=== PATIENT | male | born 1985 | race Caucasian/White ===

== ENCOUNTER 2019-06-21 06:10 | Day surgery (SDC) | payer SELFPAY ==
[2019-06-15 15:07] VITALS: BMI 36.1
[2019-06-21] MEDS ORDERED: fentaNYL CITRATE 250 MCG/5 ML VIAL ONE ×2 (07:25→12:52)
[2019-06-21] MEDS ORDERED: LIDOCAINE HCL 2% 100 MG/5 ML DISP.SYRIN ONE (07:25)
[2019-06-21] MEDS ORDERED: ceFAZolin SODIUM 1 GM VIAL ONE (07:25)
[2019-06-21] MEDS ORDERED: MIDAZOLAM HCL 2 MG/2 ML SINGLE DOSE VIAL ONE ×2 (07:25)
[2019-06-21] MEDS ORDERED: PROPOFOL 20 ML ONE ×2 (07:25)
[2019-06-21] MEDS ORDERED: DEXAMETHASONE SOD PHOSPHATE 4 MG/1 ML VIAL ONE (07:25)
[2019-06-21] MEDS ORDERED: ONDANSETRON 4 MG/2 ML VIAL ONE (07:25)
[2019-06-21] MEDS ORDERED: ROCURONIUM BROMIDE 50 MG/5 ML SYRINGE ONE (07:25)
[2019-06-21] MEDS ORDERED: SUCCINYLCHOLINE CHLORIDE 200 MG/10 ML SYRINGE ONE (07:26)
[2019-06-21] MEDS ORDERED: SODIUM BICARBONATE 8.4% 50 MEQ/50 ML VIAL ONE (07:27)
[2019-06-21] MEDS ORDERED: EPINEPHrine/PF 1 MG/1 ML (1:1,000) AMPULE ONE ×2 (07:27→08:03)
[2019-06-21] MEDS ORDERED: LIDOCAINE HCL 2% (20ML MULTI-DOSE VIAL) ONE ×2 (07:27→08:03)
[2019-06-21] MEDS ORDERED: HYDROmorphone HCL/PF 1 MG/ML AMP ONE ×2 (07:41→10:27)
[2019-06-21] MEDS ORDERED: NEOSTIGMINE METHYLSULFATE 0.5 MG/ML - 10 ML MDV ONE (07:42)
[2019-06-21] MEDS ORDERED: GLYCOPYRROLATE 0.2 MG/1 ML VIAL ONE (07:42)
[2019-06-21] MEDS ORDERED: ePHEDrine SULFATE 50 MG/1 ML AMPULE ONE ×2 (07:43→10:26)
[2019-06-21] MEDS ORDERED: EPINEPHrine 1:1,000 1 MG/1 ML - 30ML VIAL (INJECTION) ONE (08:14)
[2019-06-21] MEDS ORDERED: BACITRACIN 15 GM TUBE TOPICAL OINTMENT ONE (09:48)
[2019-06-21] MEDS ORDERED: BENZOIN/ALOE VERA/STORAX/TOLU 58 ML BOTTLE ONE (13:10)
[2019-06-21] MEDS ORDERED: oxyCODONE HCL 5 MG TABLET PO PRN (13:46)
[2019-06-21] MEDS ORDERED: ONDANSETRON 4 MG/2 ML VIAL IVPUSH PRN (13:46)
[2019-06-21] MEDS ORDERED: LACTATED RINGERS SOLUTION 1,000 ML IV SCH (14:00)
[2019-06-21 15:20] VITALS: TEMP 98.7
[2019-06-21 17:34] VITALS: BP 113/69; PULSE 76
--- NOTE | 2019-06-26 14:31 | PATH ---
Surgical Pathology Report Patient Name: SERINA SERRANO Med. Rec. #: [id number] /Age/Gender: 1985 (Age: 34) / M Account: [id number] Location: [facility] AMBUL[facility] Taken: 06/21/2019 Received: 06/21/2019 Reported: 06/26/2019 Physicians: Jenni Alonso M.D. Specimen(s) Received ABDOMINAL SKIN AND TISSUE Clinical History Cosmetic Final Diagnosis ABDOMINAL SKIN AND TISSUE, ABDOMINOPLASTY: SKIN AND ADIPOSE TISSUE, DESCRIBED (GROSS EXAMINATION ONLY). Electronically Signed Doreen Aldrich M.D. Gross Description Received in formalin labeled "abdominal skin and tissue," is a 956 g, 45.0 x 11.0 cm gao, unoriented portion of skin excised to depth of 3.0 cm. The epidermal surface is unremarkable. Sectioning of the underlying soft tissue reveals unremarkable yellow, lobulated adipose tissue. No lesions are identified. No sections are submitted, gross only. 06/22/2019 [facility]06/22/2019
== END 2019-06-21 17:15 | disposition home or self-care (01) ==
LOC: FASU 06:10
PROVIDERS: ATTEND Plastic Surgery
PROC: 0J080ZZ Alteration of Abdomen Subcutaneous Tissue and Fascia, Open Approach (ICD-10-PCS; principal; 2019-06-21 09:26)
PROC: 0J083ZZ Alteration of Abdomen Subcutaneous Tissue and Fascia, Percutaneous Approach (ICD-10-PCS; 2019-06-21 09:26)
DX: Z41.1 Encounter for cosmetic surgery (principal)
CPT/HCPCS: 88300-TC; 94760